=== PATIENT | female | born 1985 | race Caucasian/White ===

== ENCOUNTER 2020-04-10 15:56 | Outpatient (CLI) | payer MEDICAID | END 2020-04-10 17:25 | disposition home or self-care (01) | LOC: D.LDO 15:56 | PROVIDERS: ATTEND Student in an Organized Health Care Education/Training Program | DX: O35.9XX0 Maternal care for (suspected) fetal abnormality and damage, unspecified, not applicable or unspecified (principal); O36.5990 Maternal care for other known or suspected poor fetal growth, unspecified trimester, not applicable or unspecified ==

== ENCOUNTER 2020-04-15 17:17 | Inpatient (IN) | payer MEDICAID ==
[~2020-04-15] VITALS: Ht 175.3 cm; Wt 79.1 kg
[2020-04-15 19:29] LABS: HEMATOCRIT 33.9 % (36.0-48.0); HEMOGLOBIN 11.1 g/dL (12-16); MCH 30.3 pg (26.0-34.0); MCHC 32.7 g/dL (31.0-37.0); MCV 92.6 fL (80.0-100.0); MEAN PLATELET VOLUME 9.9 fL (7.4-10.4); RBC 3.66 10x6/uL (4.00-5.40); RDW 13.4 % (11.5-14.5); WBC 7.2 10x3/uL (4.8-10.8)
[2020-04-15 19:39] LABS: BILIRUBIN NEGATIVE (NEGATIVE); KETONE MODERATE mg/dL (NEGATIVE); NITRITE NEGATIVE (NEGATIVE); UROBILINOGEN NORMAL mg/dL (< 2); WHITE CELLS - URINE >50 HPF (0-4)
[2020-04-15 19:40] LABS: BACTERIA MODERATE HPF (NONE SEEN); EPITHELIAL CELLS 0-5 /hpf (0-5)
[2020-04-15 19:47] LABS: UDS - AMPHET NEGATIVE QUAL (NEGATIVE); UDS - BARB NEGATIVE QUAL (NEGATIVE); UDS - BENZO NEGATIVE QUAL (NEGATIVE); UDS - COCAINE NEGATIVE QUAL (NEGATIVE); UDS - OPIATE NEGATIVE QUAL (NEGATIVE); UDS - PCP NEGATIVE QUAL (NEGATIVE); UDS - THC POSITIVE QUAL (NEGATIVE)
[2020-04-15 19:59] VITALS: BP 123/75; Ht 175.3 cm; Wt 79.1 kg
--- NOTE | 2020-04-16 16:00 | NUR ---
PT TRANSFERRED TO ROOM 1274, AMBULATORY WITH STEADY GAIT. ORIENTED TO NEW ROOM AND CALL LIGHT. PT PROVIDED WITH APPLE JUICE AND EXTRA PILLOW PER REQUEST. PT DENIES FURTHER NEEDS. IN [place] AT PT BEDSIDE. SRUx2, CL IN REACH. WILL CONT TO MONITOR.
--- NOTE | 2020-04-16 17:30 | NUR ---
THIS RN TO ROOM FOR PT CHECK. PT SITTING UP IN BED, HOLDING . PT DENIES PAIN OR ANY NEEDS, DENIES WANTING TO TAKE TYLENOL. SRUx2, CL IN REACH.
--- NOTE | 2020-04-16 17:30 | NUR ---
DR FERNÁNDEZ ON UNIT, URINE PROTEIN RESULT REPORTED. STATES IS WNL, NO FURTHER ORDERS RECEIVED.
--- NOTE | 2020-04-16 18:30 | NUR ---
THIS RN TO ROOM FOR PT CHECK. PT SITTING UP IN BED, TEXTING ON PHONE. PT DENIES PAIN OR ANY NEEDS, STATES SHE DOESN'T NEED TYLENOL. Rajesh, CL IN REACH. WILL CONT TO MONITOR.
[2020-04-16 20:10] VITALS: BP 131/78
--- NOTE | 2020-04-16 20:30 | NUR ---
RECEIVED SHIFT REPORT FROM CHASITY SIMMONS RN
[2020-04-16 21:35] VITALS: BP 124/74
--- NOTE | 2020-04-16 21:35 | NUR ---
ASSESSMENT PER FLOW SHEET, VS OBTAINED, SALINE LOCK IN LEFT HAND INTACT WITH NO REDNESS OR EDEMA, FF, ML, U/1, LITE BLEEDING NOTED WITH NO CLOTS, PT REPORTS FLATUS, BM, AND VOIDING WITH NO DIFFICULTY, PT DENIES PAIN, PT INFORMED OF TRANSFER TO WOMENS UNIT, PT VERBALIZES UNDERSTANDING, DENIES NEEDS AT THIS TIME, TO ARMS
--- NOTE | 2020-04-16 22:15 | NUR ---
PT TRANSFERRED VIA WC TO [facility] ROOM 1223, PT TRANSFERS SELF TO BED, PT ORIENTED TO ROOM, REQUESTED AND SERVED [facility] [facility], TO ROOM VIA OPEN CRIB CART PER CHASITY GARCIA RN, PT ORIENTED TO ROOM, BED IN LOW POSITION, SIDE RAILS X 2, CALL LIGHT IN REACH
--- NOTE | 2020-04-17 00:10 | NUR ---
PT , REFUSES TYLENOL, PT INST TO LET ME KNOW IF SHE CHANGES HER MIND, PT VERBALIZES UNDERSTANDING, DENIES NEEDS AT THIS TIME
--- NOTE | 2020-04-17 02:26 | NUR ---
PT AWAKE, HOLDING INFANT, DECIDED TO TAKE TYLENOL, ADM TYLENOL PO PER MD ORDERS, SEE EAR, WITH FRESH H20, PT DENIES FURTHER NEEDS
--- NOTE | 2020-04-17 03:37 | NUR ---
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
--- NOTE | 2020-04-17 05:38 | NUR ---
PT REQUESTS INFANT TO NSY TO GET A LITTLE BIT OF SLEEP, INFANT TO NSY VIA OPEN CRIB CART, PT DENIES FURTHER NEEDS OR PAIN
[2020-04-17 06:09] LABS: HEMATOCRIT 32.6 % (36.0-48.0); HEMOGLOBIN 10.5 g/dL (12-16); MCH 29.7 pg (26.0-34.0); MCHC 32.2 g/dL (31.0-37.0); MCV 92.1 fL (80.0-100.0); MEAN PLATELET VOLUME 10.3 fL (7.4-10.4); RBC 3.54 10x6/uL (4.00-5.40); RDW 13.4 % (11.5-14.5); WBC 7.1 10x3/uL (4.8-10.8)
--- NOTE | 2020-04-17 07:25 | NUR ---
DR FERNÁNDEZ TO PT ROOM FOR ROUNDING. PT RESTING QUIELTY, LEFT UNDISTURBED FOR REST. AM LABS REVIEWED WELL GBS STATUS. ORDER RECEIVED FOR DISCHARGE, MAY DISCHARGE TO ROOMING IN STATUS IF NEEDED FOR CARE.
--- NOTE | 2020-04-17 07:50 | NUR ---
THIS RN TO ROOM FOR SHIFT ASSESSMENT, PT LYING IN BED ON RIGH SIDE, RESP EVEN AND UNLABORED. PT LEFT UNDISTURBED FOR REST. SRUx2, CL IN REACH. WILL CONT TO MONITOR.
--- NOTE | 2020-04-17 08:15 | NUR ---
NURSERY STAFF TO ROOM WITH INFANT. PT ALERTS TO VOICE, REQUESTS THAT BE TAKEN BACK TO NURSERY SO SHE CAN SLEEP. STAFF STATES WILL RETURN WITH INFANT IN APPROX 1 HOUR FOR FEEDING. PT BACK TO SLEEP.
[2020-04-17 09:15] VITALS: BP 132/87
--- NOTE | 2020-04-17 09:15 | NUR ---
THIS RN TO ROOM FOR SHIFT ASSESSMENT. PT AWAKE, SITTING UP IN BED. PT DENIES ANY PAIN, STATES SHE FEELS GOOD THIS MORNING AND READY TO GO HOME. VSS, SHIFT ASSESSMENT COMPLETE, SEE FLOWSHEET FOR DOC. PT REPORTS PASSING A LARGE CLOT LAST NIGHT, STATES IT WAS "NOT QUITE BIG AN EGG" BUT ALARMED HER. PT DENIES HEAVY LOCHIA FLOW OTHERWISE. PT REINFORCED ON S/S TO REPORT, UNDERSTANDING VERBALIZED. AM LABS REVIEWED. LEFT HAND PIV REMOVED PER PT REQUEST AND NO LONGER INDICATED. CATH INTACT, PRESSURE HELD AND BANDAID APPLIED. PT STATES SHE WANTS TO GET UP TO SHOWER BEFORE INFANT IS BROUGHT BACK TO ROOM TO FEED. TOWELS AND CLOTHS AVAILABLE TO PT, STATES SHE HAS HER OWN SOAPS. DENIES NEED FOR ASSIST. INSTRUCTED TO CALL FOR ANY NEEDS. WILL CONT TO MONITOR.
--- NOTE | 2020-04-17 09:55 | NUR ---
PT OUT OF SHOWER, NURSERY TO ROOM WITH INFANT.
[2020-04-17] MEDS ORDERED: IBUPROFEN600 MG PO (10:16)
[2020-04-17 11:11] LABS: RAPID PLASMA REAGIN Reactive (Non Reactive); TREPONEMA PALLIDUM AB Reactive (Non Reactive)
--- NOTE | 2020-04-17 11:51 | NUR ---
THIS RN TO ROOM FOR DISCHARGE TEACHING. PT SITTING UP IN BED HOLDING . DISCHARGE TEACHING COMPLETED AT 1145. PT VERBALIZES UNDERSTANDING AND DENIES QUESTIONS, SIGNS CHART COPIES. PT BEGINS , REQUESTS SOMETHING FOR CRAMPING, RATES PAIN 4/10. PT ADMIN SCHEDULED TYLENOL WELL PRN TORADOL FOR CRAMPING. PT PROVIDED WITH SNACKS PER REQUEST WHILE WAITING ON LUNCH TRAY TO BE DELIVERED. PT DENIES FURTHER NEEDS. DISCHARGED TO HOME, AND INFORMED MAY ROOM-IN PER DR HAJI IF NEEDED FOR INFANT CARE. UNDERSTANDING VERBALIZED.
== END 2020-04-17 11:52 | disposition home or self-care (01) | DRG 807 ==
LOC: D.LD 17:17 → D.WS 04-16 22:15
PROVIDERS: ADMIT Obstetrics & Gynecology; ATTEND Obstetrics & Gynecology
PROC: 10907ZC Drainage of Amniotic Fluid, Therapeutic from Products of Conception, Via Natural or Artificial Opening (ICD-10-PCS; 2020-04-15)
PROC: 3E033VJ Introduction of Other Hormone into Peripheral Vein, Percutaneous Approach (ICD-10-PCS; 2020-04-15)
PROC: 10E0XZZ Delivery of Products of Conception, External Approach (ICD-10-PCS; principal; 2020-04-16)
DX: O36.5930 Maternal care for other known or suspected poor fetal growth, third trimester, not applicable or unspecified (principal); Z37.0 Single live birth; Z3A.39 39 weeks gestation of pregnancy; O99.334 Smoking (tobacco) complicating childbirth; F17.200 Nicotine dependence, unspecified, uncomplicated